=== PATIENT | female | born 1965 | race Caucasian/White ===

== ENCOUNTER 2017-07-20 10:25 | Emergency (ER) | payer MEDICAID ==
[~2017-07-20] VITALS: Ht 170.2 cm; Wt 77.1 kg
--- NOTE | 2017-07-20 10:44 | Emergency Room Report ---
History of Present Illness General Chief Complaint: Animal Bite Source: Patient Present Illness HPI Patient is a 52-year-old female [id number] who presented after increased pain to her left hand after an animal bite. Patient reports having injured his prior to arrival. She denies recent tetanus vaccine. Dog is reportedly a neighbor's animal which appeared well and reportedly has all his vaccines. The patient reported having pain to her left index finger as well as to her left buttock. She reports having some decreased sensation to distal phalanx Allergies: Coded Allergies: No Known Allergies (Unverified , 07/20/17) Patient History Past Medical History: see triage record Now: No Reviewed Nursing Documentation: PMH: Agreed, PSxH: Agreed Nursing Documentation-PMH Past Medical History: No Stated History Review of Systems All Other Systems: negative except mentioned in HPI Physical Exam Vital Signs Date Time Temp Pulse Resp B/P (MAP) Pulse Ox O2 Delivery O2 Flow Rate FiO2 07/20/17 10:33 98.1 97 24 126/72 97 Room Air Medical Decision Making Diagnostic Impression: Primary Impression: Fracture, finger, distal phalanx, open Additional Impression: Laceration of thigh, left ER Course Patient presented after reported dog bite. Differential diagnosis included but was not limited to fracture, intraabdominal injury, foreign body among others. Patient was noted to have a fracture to the distal phalanx tuft on left index finger. Dr. Raphael Araujo was contacted for hand surgery consult. He presented to the emergency department and performed repair. Patient's tetanus vaccine was updated. Patients thigh laceration is superficial and does not appear to require suturing. Patient was to contact Dr. Araujo office for follow up. She was given a prescription for pain medication and Augmentin. Other X-Ray Diagnostic Results Other X-Ray Diagnostic Results : # of Views/Limited Vs Complete: 3 View Indication: Pain EP Interpretation: Yes Interpretation: other - fracture 2nd distal phalanx, soft tissue laceration Last Vital Signs Date Time Temp Pulse Resp B/P (MAP) Pulse Ox O2 Delivery O2 Flow Rate FiO2 07/20/17 10:33 98.1 97 24 126/72 97 Room Air Status: improved Disposition: HOME, SELF-CARE Condition: Stable Scripts Amoxicillin/Potassium Clav 875-125* (AUGMENTIN 875-125 TABLET*) 1 Each Tablet 1 TAB ORAL TWICE A DAY, #14 TAB Prov: Derik Collier 07/20/17 Hydrocodone Bit/Acetaminophen 5-325* (NORCO 5-325*) 1 Each Tablet 1 TAB ORAL Q6H Y for For Pain, #20 TAB 0 Refills Prov: Derik Collier 07/20/17 Derik Collier Jul 20, 2017 10:44
[2017-07-20] MEDS ORDERED: Tetanus/Diptheria/Pertussis Vaccine 0.5ml Syr IM ONE (10:45)
[2017-07-20] MEDS ORDERED: Morphine Sulfate 4mg/ml Inj IVP ONE (10:45)
[2017-07-20 11:24] LABS: EOSINOPHILS % (AUTO) 4.4 % (0.0-3.0); LYMPHOCYTES % (AUTO) 32.4 % (20.0-45.0); MEAN CORPUSCULAR HEMOGLOBIN 30.1 PG (27.0-31.0); MEAN CORPUSCULAR HGB CONC 33.9 G/DL (32.0-36.0); MEAN CORPUSCULAR VOLUME 89 FL (80-99); MEAN PLATELET VOLUME 8.3 FL (6.5-10.1); MONOCYTES % (AUTO) 5.7 % (1.0-10.0); NEUTROPHILS % (AUTO) 56.4 % (45.0-75.0); PLATELET COUNT 370 K/UL (150-450); RED BLOOD COUNT 4.88 M/UL (4.20-5.40); RED CELL DISTRIBUTION WIDTH 10.9 % (11.6-14.8); WHITE BLOOD COUNT 8.7 K/UL (4.8-10.8)
[2017-07-20 11:28] VITALS: BP 126/72
[2017-07-20 11:49] LABS: ANION GAP 11 mmol/L (5-15); CALCIUM 9.5 MG/DL (8.5-10.1); CARBON DIOXIDE 24 MMOL/L (21-32); CHLORIDE 106 MMOL/L (98-107); CREATININE 0.9 MG/DL (0.55-1.30); GLOMERULAR FILTRATION RATE > 60 mL/min (>60); POTASSIUM 3.6 MMOL/L (3.5-5.1); SODIUM 141 MMOL/L (136-145)
[2017-07-20 11:53] LABS: ALANINE AMINOTRANSFERASE 27 U/L (12-78); ALBUMIN/GLOBULIN RATIO 1.1 (1.0-2.7); ASPARTATE AMINO TRANSFERASE 18 U/L (15-37); TOTAL PROTEIN 7.4 G/DL (6.4-8.2)
[2017-07-20] MEDS ORDERED: Lidocaine 1% 10mg/ml/Epi 0.005mg/ml 30ml vial INJ ONE (12:15)
[2017-07-20] MEDS ORDERED: Lidocaine 1% MPF 10mg/ml 5ml ONE (12:17)
[2017-07-20] MEDS ORDERED: Lidocaine 1% Plain 30 ml INJ ONE (12:18)
[2017-07-20] MEDS ORDERED: Bacitracin Oint UD TOPIC ONE (12:20)
[2017-07-20] MEDS ORDERED: NORCO 5-325 TA1 EACH ORAL (13:24)
[2017-07-20] MEDS ORDERED: AUGMENTIN 875-1 EAC1 ORAL (13:24)
[2017-07-20 13:30] VITALS: BP 128/64
--- NOTE | 2017-07-20 16:42 | Diagnostic Imaging Report ---
Indication: PAIN, and extending up, thought by Technique: 2 views of the left second finger Comparison: None Findings: There is a large soft tissue defect of the lateral aspect of the terminal tuft of the second digit. There is a comminuted fracture of the midshaft of the second distal phalanx. This is angulated medially. Small punctate densities may reflect either bony fragments or radiopaque foreign body. Impression: Positive for fracture of the distal phalanx with associated soft tissue injury, as described. Small radiopaque foreign bodies not excludable
== END 2017-07-20 13:30 | disposition home or self-care (01) ==
LOC: EMR 11:00
DX: S62.631B Displaced fracture of distal phalanx of left index finger, initial encounter for open fracture (principal); S71.112A Laceration without foreign body, left thigh, initial encounter; Z23 Encounter for immunization; W54.0XXA Bitten by dog, initial encounter; Y92.9 Unspecified place or not applicable
CPT/HCPCS: 36415; 73140; 80053; 85025; 90471; 90715; 96361; 96374; 96375; 99284; J2270; J2405

== ENCOUNTER 2017-08-14 12:29 | Emergency (ER) | payer MEDICAID ==
[~2017-08-14] VITALS: Ht 177.8 cm; Wt 77.1 kg
[~2017-08-14 12:29] MED LIST: AUGMENTIN 875-1 EAC1 ORAL; NORCO 5-325 TA1 EACH ORAL
--- NOTE | 2017-08-14 13:20 | Emergency Room Report ---
History of Present Illness General Chief Complaint: Wound Recheck/Suture Removal Source: Patient Present Illness HPI 52-year-old female presents to the emergency department complaining of recent injury to the left index finger that required hand specialist placement of sutures. This injury occurred last month on the and patient presents today for wound check/reevaluation. Patient saw a hand specialist last week and had sutures removed and was told is okay for her to see her hand wet. Patient states she is worried that it may be infected or if that is not quite healed at this time. Patient reports some light pink discoloration around where the laceration was. Patient denies erythema, fevers, chills, discharge, tenderness. She is up-to-date with vaccinations she did completely antibiotic she stated that she did not require to take the previously prescribed pain medications. Denies loss of gross motor movements of the extremity. Pt reports paresthesia to the distal portion of the left index finger which has been present since initial injury occurred. Allergies: Coded Allergies: No Known Allergies (Unverified , 07/20/17) Patient History Past Medical History: see triage record Past Surgical History: none Pertinent Family History: none Last Menstrual Period: N/A Immunizations: UTD Reviewed Nursing Documentation: PMH: Agreed, PSxH: Agreed Nursing Documentation-PMH Past Medical History: No Stated History Review of Systems All Other Systems: negative except mentioned in HPI Physical Exam Vital Signs Date Time Temp Pulse Resp B/P (MAP) Pulse Ox O2 Delivery O2 Flow Rate FiO2 08/14/17 12:59 98.1 73 20 110/76 97 Room Air Sp02 EP Interpretation: reviewed, normal General Appearance: no apparent distress, alert, GCS 15, non-toxic Head: normocephalic, atraumatic ENT: hearing grossly normal, normal voice Neck: full range of motion Respiratory: lungs clear, normal breath sounds, speaking full sentences Cardiovascular #1: regular rate, rhythm, normal capillary refill Musculoskeletal: back normal, gait/station normal, normal range of motion, non- tender Neurologic: alert, oriented x3, responsive, motor strength/tone normal, normal gait, speech normal, other - paresthesia to the distal portion of the left index finger which has been present since initial injury occurred. , grossly normal Skin: normal color, no rash, warm/dry, well hydrated, wd healing/no infection noted - healing/almost healed laceration of the left index finger with granulation tisssue, and some scabbing, no d/c, no erythema or increased temperature to palpation, the nail is not present. no bleeding or evidence of infection at this time. Medical Decision Making PA Attestation Dr. English is my supervising Physician whom patient management has been discussed with. Diagnostic Impression: Primary Impression: Encounter for wound re-check ER Course 52-year-old female presents to the emergency department complaining of recent injury to the left index finger that required hand specialist placement of sutures. This injury occurred last month on the and patient presents today for wound check/reevaluation. Patient saw a hand specialist last week and had sutures removed and was told is okay for her to see her hand wet. Patient states she is worried that it may be infected or if that is not quite healed at this time. Patient reports some light pink discoloration around where the laceration was. Patient denies erythema, fevers, chills, discharge, tenderness. She is up-to-date with vaccinations she did completely antibiotic she stated that she did not require to take the previously prescribed pain medications. Denies loss of gross motor movements of the extremity. Ddx considered but are not limited to laceration, tendon injury, cellulitis, dehiscence. Vital signs: are WNL, pt. is afebrile -Review of previous chart shows distal phalanx fx with laceration from animal bite requiring hand specialist Dr. Araujo to repair. H&PE are most consistent with: healing/almost healed laceration of the left index finger with granulation tisssue, and some scabbing, no d/c, no erythema or increased temperature to palpation, the nail is not present. no bleeding or evidence of infection at this time. ORDERS: none required at this time, the diagnosis is clinical ED INTERVENTIONS: - d/w pt. signs and symptom to watch for that would indicate infection. pt. was given re-assurance that I do not suspect infection at this time. d/w pt. to follow up with PMD or hand specialist, as I do not identify an acute emergent condition at this time. DISCHARGE: At this time pt. is stable for d/c to home. Will provide printed patient care instructions, and any necessary prescriptions. Care plan and follow up instructions have been discussed with the patient prior to discharge. Last Vital Signs Date Time Temp Pulse Resp B/P (MAP) Pulse Ox O2 Delivery O2 Flow Rate FiO2 08/14/17 12:59 98.1 73 20 110/76 97 Room Air Disposition: HOME, SELF-CARE Condition: Stable Referrals: [facility],REFERRING (PCP) Patient Instructions: Wound Check Additional Instructions: Take any previously prescribed medications as directed. Follow up with a Primary Care Provider/ HAND SPECIALIST in 3-5 days, even if your symptoms have resolved. Return sooner to ED if new symptoms occur, or current symptoms become worse. - Please note that this Emergency Department Report was dictated using ipsyroofing tile sorter technology software, occasionally this can lead to erroneous entry secondary to interpretation by the dictation equipment. Tiffany Pennington Aug 14, 2017 13:20
[2017-08-14 13:40] VITALS: BP 117/80
== END 2017-08-14 13:40 | disposition home or self-care (01) ==
LOC: EMR 12:35
DX: S61.211D Laceration without foreign body of left index finger without damage to nail, subsequent encounter (principal)
CPT/HCPCS: 99281